=== PATIENT | male | born 2000 | race Caucasian/White ===

== ENCOUNTER 2023-06-15 22:05 | Emergency (ER) | payer MEDICAID ==
[~2023-06-15] VITALS: Ht 177.8 cm; Wt 108.5 kg
[2023-06-15 23:02] VITALS: O2SAT 98
[2023-06-15 23:37] LABS: BASOPHILS % 0.6 % (0.0-2.0); EOSINOPHILS % 0.9 % (0.0-5.0); HEMATOCRIT. 44.6 % (42.0-52.0); HEMOGLOBIN. 15.5 g/dL (14.0-18.0); LYMPHOCYTES % 10.2 % (20.0-50.0); MEAN CORPUSCULAR HEMOGLOBIN 30.6 pg (28.0-32.0); MEAN CORPUSCULAR HGB CONC 34.9 g/dL (31.0-37.0); MEAN CORPUSCULAR VOLUME 87.7 fL (80.0-94.0); MEAN PLATELET VOLUME 8.2 fl (7.4-10.4); MONOCYTES % 11.5 % (2.0-8.0); NEUTROPHILS % 76.8 % (40.0-76.0); PLATELET 272 x1000/uL (130-400); RED BLOOD CELL COUNT 5.08 mill/uL (4.7-6.1); WHITE BLOOD COUNT 8.4 x1000/uL (4.5-11.0)
[2023-06-15 23:45] VITALS: TEMP 98.5
[2023-06-15 23:50] LABS: ALANINE AMINOTRANSFERASE 35 IU/L (10-49); ALBUMIN 4.8 g/dL (3.2-4.8); ASPARTATE AMINOTRANSFERASE 24 IU/L (<34); BILIRUBIN TOTAL 0.5 mg/dL (0.1-1.0); CALCIUM 9.6 mg/dL (8.7-10.4); CARBON DIOXIDE 23 mEq/L (21-32); CHLORIDE 106 mEq/L (98-107); CREATININE 0.9 mg/dL (0.6-1.3); GLUCOSE 117 mg/dL (70-105); POTASSIUM 3.7 mEq/L (3.5-5.1); PROTEIN TOTAL 8.5 g/dL (6.0-8.3); SODIUM 136 mEq/L (136-145); UREA NITROGEN BLOOD 7 mg/dL (9-23)
[2023-06-16] MEDS: SODIUM CHLORIDE 0.9% 1,000 ML IV ONE (00:20)
[2023-06-16 00:25] LABS: ETHANOL BLOOD < 10 mg/dL (<10); TROPONIN I HIGH SENSITIVITY < 4 ng/L (3.0-53)
[2023-06-16 02:25] LABS: *AMPHETAMINES SCREEN URINE NEGATIVE (NEGATIVE); *BARBITURATES SCREEN URINE NEGATIVE (NEGATIVE); *BENZODIAZEPINES SCREEN URINE NEGATIVE (NEGATIVE); *COCAINE SCREEN URINE NEGATIVE (NEGATIVE); CANNABINOID URINE SCREEN NEGATIVE (NEGATIVE); ECSTASY MDMA SCREEN URINE NEGATIVE (NEGATIVE); METHADONE URINE SCREEN Neg (NEGATIVE); OPIATES URINE SCREEN NEGATIVE (NEGATIVE); PHENCYCLIDINE URINE SCREEN NEGATIVE (NEGATIVE)
[2023-06-16] MEDS ORDERED: GUAI600T26 MT (03:57)
[2023-06-16] MEDS ORDERED: ALBU6.7H15 INH (03:57)
[2023-06-16] MEDS ORDERED: IBUP-2028 MT (03:57)
[2023-06-16] MEDS: KETOROLAC 15MG/ML VIAL IV NR (05:00)
[2023-06-16] MEDS ORDERED: IOHEXOL-350 100 ML BOTTLE ONE (05:25)
[2023-06-16 05:50] VITALS: BP 144/64; PULSE 99; RESP 14
== END 2023-06-16 05:50 | disposition home or self-care (01) ==
LOC: ER 22:05
DX: R00.2 Palpitations (principal); R00.0 Tachycardia, unspecified; B34.9 Viral infection, unspecified; Z20.822 Contact with and (suspected) exposure to COVID-19
CPT/HCPCS: 80053; 80320; 83880; 83690; 85025; 85379; 84484; 36415; 71045; 93005; 99285; 80305; 87804 ×2; 71275; 96360; 87426; Q9967; J7030; Z7610; J1885; G0480